=== PATIENT | female | born 1930 | race Caucasian/White ===

== ENCOUNTER 2017-10-09 13:51 | Observation (INO) | payer MEDICARE, MEDICAID ==
[~2017-10-09] VITALS: Ht 160 cm; Wt 63.0 kg
[2017-10-09] MEDS ORDERED: HALOPERIDOL LACTATE 5MG/ML VIAL IM ONE (15:00)
[2017-10-09] MEDS ORDERED: ENOXAPARIN 60MG/0.6ML SYR SUBCUT ONE (15:00)
[2017-10-09 15:32] LABS: BASOPHILS % 0.8 % (0.0-2.0); HEMATOCRIT. 44.5 % (36.0-48.0); HEMOGLOBIN. 14.8 g/dL (12.0-16.0); LYMPHOCYTES % 28.8 % (20.0-50.0); MEAN CORPUSCULAR HEMOGLOBIN 28.9 pg (28.0-32.0); MEAN CORPUSCULAR VOLUME 87.2 fL (81.0-99.0); MEAN PLATELET VOLUME 7.5 fl (7.4-10.4); MONOCYTES % 7.7 % (2.0-8.0); NEUTROPHILS % 61.7 % (40.0-76.0); PLATELET 176 x1000/uL (130-400); RED CELL DISTRIBUTION WIDTH 14.5 % (11.6-14.6)
[2017-10-09 15:36] LABS: CHLORIDE 103 mEq/L (98-107); INR 1.2; PROTHROMBIN TIME 12.4 sec (9.4-11.6)
[2017-10-09 17:45] VITALS: BP 162/77
[2017-10-09] MEDS ORDERED: ACETAMINOPHEN 325MG TABLET PO PRN (18:00)
[2017-10-09] MEDS ORDERED: CLONIDINE 0.1MG TABLET PO PRN (18:00)
[2017-10-09] MEDS ORDERED: HYDROMORPHONE HCL/PF 2MG/ML CPJ IV PRN (18:00)
[2017-10-09] MEDS ORDERED: ONDANSETRON HCL 4MG/2ML VIAL IV PRN (18:00)
[2017-10-09] MEDS ORDERED: LORAZEPAM 2MG/ML CPJ IV PRN (18:00)
[2017-10-09 18:33] LABS: BG BASE EXCESS 2.8 mmol/L (-2.0-2.0); BG CARBOXYHEMOGLOBIN 0.8 % (0.5-1.5); BG DEOXYHEMOGLOBIN 4.2 % (0.0-5.0); BG FRACTION INSPIRED OXYGEN 21; BG HCO3 ACT 26.4 mmol/L (22.0-26.0); BG METHEMOGLOBIN 0.2 % (0.0-1.5); BG OXYGEN SATURATION 95.8 % (92.0-98.5); BG OXYHEMOGLOBIN 94.8 % (94.0-97.0); BG PCO2 37.5 mmHg (35.0-45.0); BG PH 7.466 (7.350-7.450); BG PO2 77.3 mmHg (75.0-100.0); BG SAMPLE SITE RIGHT BRACHIAL; BG TOTAL HEMOGLOBIN 14.8 g/dL (12.0-18.0); BG VENT MODE ROOM AIR
[2017-10-09] MEDS: DONEPEZIL HCL 10MG TABLET PO SCH (19:55)
[2017-10-09 20:00] VITALS: BP 165/81
[2017-10-09] MEDS: IPRATROPIUM/ALBUTEROL 0.5-3(2.5)MG/3ML NEB HHN SCH (20:32)
[2017-10-09] MEDS ORDERED: RISPERIDONE 0.5MG TABLET PO SCH (21:00)
[2017-10-09] MEDS ORDERED: ATORVASTATIN CALCIUM 10MG TABLET PO SCH (21:00)
[2017-10-09] MEDS ORDERED: MIRTAZAPINE 15MG TABLET PO SCH (21:00)
[2017-10-09] MEDS ORDERED: BISA10SU8 RC (23:54)
[2017-10-09] MEDS ORDERED: GUAI100S35 PO (23:54)
[2017-10-09] MEDS ORDERED: LEVO25TA7 PO (23:54)
[2017-10-09] MEDS ORDERED: ALLO100T PO (23:54)
[2017-10-09] MEDS ORDERED: MOM PO (23:54)
[2017-10-09] MEDS ORDERED: DONE10TA43 PO (23:54)
[2017-10-09] MEDS ORDERED: ACET-2178 PO (23:54)
[2017-10-09] MEDS ORDERED: HYDR-4001 PO (23:54)
[2017-10-09] MEDS ORDERED: ATOR20TA PO (23:54)
[2017-10-09] MEDS ORDERED: DILT30TA3 PO (23:54)
[2017-10-09] MEDS ORDERED: LORA0.5T2 PO (23:54)
[2017-10-09] MEDS ORDERED: RISP05 PO (23:54)
[2017-10-09] MEDS ORDERED: SULF1TAB47 PO (23:54)
[2017-10-09] MEDS ORDERED: MIRT7.5T11 PO (23:54)
[2017-10-09] MEDS ORDERED: FOLI100T PO (23:54)
[2017-10-10] VITALS: BP 99/52
[2017-10-10 00:35] LABS: CREATINE KINASE MB FRACTION 1.7 ng/mL (0.5-3.6)
[2017-10-10 04:00] VITALS: BP 124/69
[2017-10-10] MEDS: IPRATROPIUM/ALBUTEROL 0.5-3(2.5)MG/3ML NEB HHN SCH ×4 (04:25→12:54)
[2017-10-10] MEDS: DILTIAZEM HCL 30MG TABLET PO SCH ×4 (05:38→12:24)
[2017-10-10 05:54] LABS: CHLORIDE 105 mEq/L (98-107)
[2017-10-10] MEDS ORDERED: ENOXAPARIN 40MG/0.4ML SYR SUBCUT SCH (06:00)
[2017-10-10 06:05] LABS: CREATINE KINASE MB FRACTION 1.6 ng/mL (0.5-3.6)
[2017-10-10 06:17] LABS: BASOPHILS % 0.7 % (0.0-2.0); EOSINOPHILS % 2.7 % (0.0-5.0); HEMATOCRIT. 40.3 % (36.0-48.0); HEMOGLOBIN. 13.1 g/dL (12.0-16.0); LYMPHOCYTES % 35.9 % (20.0-50.0); MEAN CORPUSCULAR HEMOGLOBIN 28.7 pg (28.0-32.0); MEAN PLATELET VOLUME 7.9 fl (7.4-10.4); MONOCYTES % 9.1 % (2.0-8.0); NEUTROPHILS % 51.6 % (40.0-76.0); PLATELET 140 x1000/uL (130-400); RED BLOOD CELL COUNT 4.58 mill/uL (4.2-5.4); RED CELL DISTRIBUTION WIDTH 14.8 % (11.6-14.6)
[2017-10-10] MEDS ORDERED: LEVOTHYROXINE SODIUM 25MCG TABLET PO SCH (07:40)
[2017-10-10 08:00] VITALS: BP 156/75
[2017-10-10] MEDS: ALLOPURINOL 100 MG TABLET PO SCH ×2 (09:00→12:28)
[2017-10-10] MEDS: RISPERIDONE 0.5MG TABLET PO SCH ×2 (09:00→12:28)
[2017-10-10] MEDS: DONEPEZIL HCL 10MG TABLET PO SCH ×2 (09:00→12:26)
[2017-10-10 12:00] VITALS: BP 169/76
== END 2017-10-10 14:29 ==
LOC: ER 14:22 → 7WST 15:06 → INTOOBSV 15:06 → EDBEDREQ 15:11 → ENRESERV 16:03
PROVIDERS: ADMIT Internal Medicine Geriatric Medicine; ATTEND Internal Medicine Geriatric Medicine
DX: R60.0 Localized edema (principal); E11.65 Type 2 diabetes mellitus with hyperglycemia; I10 Essential (primary) hypertension; F02.81 Dementia in other diseases classified elsewhere, unspecified severity, with behavioral disturbance; I48.91 Unspecified atrial fibrillation; F41.1 Generalized anxiety disorder; Z87.891 Personal history of nicotine dependence; F51.04 Psychophysiologic insomnia; F32.9 Major depressive disorder, single episode, unspecified; R94.31 Abnormal electrocardiogram [ECG] [EKG]; Z79.899 Other long term (current) drug therapy; Z99.3 Dependence on wheelchair
CPT/HCPCS: 36415; 36600; 80053; 82375; 82553; 82805; 84443; 84484; 85025; 85610; 93005; 93970; 94640; 96372; 96374; 99285; G0378; J1630; J1650; J2060; J7620; 99291